=== PATIENT | male | born 1945 | race Caucasian/White ===

== ENCOUNTER 2016-09-22 03:08 | Observation (INO) | payer OTHER, MEDICARE ==
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
[2016-09-22 03:43] LABS: ABSOLUTE IMMATURE GRANULOCYTES 0.06 10^3/uL (0.00-0.10); ADD DIFF? NO; ADD MORPH? NO; ADD SCAN? NO; ATYPICAL LYMPHOCYTE FLAG 0 (0-99); FRAGMENT RBC FLAG 0 (0-99); HEMATOCRIT 37.8 % (40.0-51.0); HEMOGLOBIN 13.4 g/dL (13.7-17.5); LEFT SHIFT FLG 10 (0-99); LIPEMIA HEMOLYSIS FLAG 90 (0-99); MEAN CELL HEMOGLOBIN 32.8 pg (27.9-34.1); MEAN CELL HEMOGLOBIN CONCENTR. 35.4 g/dL (32.4-36.7); MEAN CELL VOLUME 92.4 fL (81.5-99.8); MEAN PLATELET VOLUME 11.6 fL (8.7-11.7); PLATELET CLUMPS FLAG 0 (0-99); PLATELET COUNT 183 10^3/uL (150-400); RED BLOOD CELL COUNT 4.09 10^6/uL (4.40-6.38); RED CELL DISTRIBUTION WIDTH 14.8 % (11.5-15.2)
--- NOTE | 2016-09-22 03:46 | CPEKG ---
Heart Rate: 85 RR Interval: 706 P-R Interval: 176 QRSD Interval: 94 QT Interval: 396 QTC Interval: 471 P [place]: 32 QRS [place]: -15 T Wave [place]: 34 EKG Severity - ABNORMAL ECG - EKG Impression: SINUS RHYTHM EKG Impression: VENTRICULAR BIGEMINY EKG Impression: BORDERLINE LEFT AXIS DEVIATION Electronically Signed By: Don Nicole 22-Sep-2016 07:04:11
[2016-09-22 03:49] LABS: ALANINE AMINOTRANSFERASE 33 IU/L (21-72); ALBUMIN 4.4 g/dL (3.5-5.0); ALKALINE PHOSPHATASE 50 IU/L (38-126); ANION GAP 11 mEq/L (8-16); ASPARTATE AMINOTRANSFERASE 26 IU/L (17-59); BILIRUBIN,TOTAL 1.3 mg/dL (0.1-1.4); BILIRUBIN-CONJUGATED 0.4 mg/dL (0.0-0.5); BILIRUBIN-UNCONJUGATED 0.9 mg/dL (0.0-1.1); CALCIUM 9.4 mg/dL (8.5-10.4); CARBON DIOXIDE 25 mEq/l (22-31); CHLORIDE 105 mEq/L (97-110); CREATININE 0.8 mg/dL (0.7-1.3); GLOMERULAR FILTRATION RATE > 60; GLUCOSE 89 mg/dL (70-100); POTASSIUM 3.5 mEq/L (3.5-5.2); SODIUM 141 mEq/L (134-144); TOTAL PROTEIN 7.1 g/dL (6.3-8.2)
[2016-09-22 04:17] LABS: COLOR YELLOW; LEUKOCYTE ESTERASE,URINE NEGATIVE (NEGATIVE); NITRITE,URINE NEGATIVE (NEGATIVE)
[2016-09-22] MEDS ORDERED: ACETAMINOPHEN 325 MG TAB PO PRN (07:43)
[2016-09-22] MEDS ORDERED: ONDANSETRON 4 MG/2 ML VIAL IVP PRN (07:43)
[2016-09-22] MEDS ORDERED: ONDANSETRON DISINTEGRATING 4 MG TAB PO PRN (07:43)
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
--- NOTE | 2016-09-22 10:15 | HOSPPROG ---
Hospitalist Progress Note Assessment/Plan: Hosp Med day service rounds The patient remains confused on my exam - he is very alert, active, eating, walking, and conversant. However in conversation he has long hesitation and loses track of the subject, or wanders to new topics even mid sentence. His memory is very poor for certain details. He certainly is not safe for driving. There remain no fevers or other changes in vitals, and he has no focal neuro changes, no other significant exam findings. MRI of brain to eval for etiology is pending. He is still not able to recall what antibiotic he was taking, but I agree if it was a quinolone that could be causing his symptoms. His dog is in the ER in a kennel, but may be moved later today to the [facility] residential. His daughter is to arrive here from [place] by flight late katarzyna. Objective: Vital Signs Temp Pulse Resp BP Pulse Ox 36.5 C 79 16 127/77 H 95 09/22/16 07:36 09/22/16 07:36 09/22/16 07:36 09/22/16 07:36 09/22/16 07:36 ICD10 Worksheet Patient Problems: Problems Problem Status Onset Confusion Acute
[2016-09-22] MEDS ORDERED: GADOBUTROL 10 ML VIAL IVP ONE (11:41)
[2016-09-22] MEDS: METOPROLOL TARTRATE 25 MG TAB PO SCH (20:41)
[2016-09-22] MEDS: POTASSIUM CL 20 MEQ TAB PO SCH (20:42)
[2016-09-22] MEDS ORDERED: FAMOTIDINE 20 MG TAB PO SCH (21:00)
[2016-09-22] MEDS ORDERED: CETIRIZINE 10 MG TAB PO SCH (21:00)
[2016-09-22] MEDS ORDERED: NON-FORMULARY NEW DRUG (Loratadine [Claritin] 10 MG) PO SCH (21:00)
[2016-09-22] MEDS ORDERED: ATORVASTATIN CALCIUM 20 MG TAB PO SCH (21:00)
[2016-09-22] MEDS ORDERED: NON-FORMULARY NEW DRUG (Ranitidine Hcl [Zantac] 150 MG) PO SCH (21:00)
[2016-09-22] MEDS ORDERED: NON-FORMULARY NEW DRUG (Simvastatin [Zocor] 40 MG) PO SCH (21:00)
[2016-09-22] MEDS ORDERED: ASPIRIN 81 MG CHEWABLE TAB PO SCH (21:00)
[2016-09-23 04:49] LABS: ANION GAP 12 mEq/L (8-16); CALCIUM 9.3 mg/dL (8.5-10.4); CARBON DIOXIDE 26 mEq/l (22-31); CHLORIDE 105 mEq/L (97-110); CREATININE 0.9 mg/dL (0.7-1.3); GLOMERULAR FILTRATION RATE > 60; GLUCOSE 84 mg/dL (70-100); POTASSIUM 3.7 mEq/L (3.5-5.2); SODIUM 143 mEq/L (134-144)
[2016-09-23 07:33] VITALS: RESP 16; TEMP 97.9; O2SAT 96
[2016-09-23] MEDS ORDERED: MULTIVITAMINS 1 EACH TAB PO SCH (09:00)
[2016-09-23] MEDS ORDERED: NON-FORMULARY NEW DRUG (Omeprazole [Prilosec 20 Mg] 20 MG) PO SCH (09:00)
[2016-09-23] MEDS ORDERED: HYDROCHLOROTHIAZIDE 12.5 MG CAP PO SCH (09:00)
[2016-09-23] MEDS ORDERED: ASCORBIC ACID 500 MG TAB PO SCH (09:00)
[2016-09-23] MEDS ORDERED: PANTOPRAZOLE SODIUM 40 MG TAB PO SCH (09:00)
[2016-09-23] MEDS ORDERED: NIACIN 500 MG TAB PO SCH (09:00)
[2016-09-23] MEDS: POTASSIUM CL 20 MEQ TAB PO SCH (09:12)
[2016-09-23] MEDS: METOPROLOL TARTRATE 25 MG TAB PO SCH (09:13)
[2016-09-23 09:14] VITALS: BP 112/60; PULSE 66
== END 2016-09-23 12:45 | disposition home or self-care (01) ==
LOC: F2W 06:33
PROVIDERS: ADMIT Internal Medicine; ATTEND Internal Medicine
DX: G31.9 Degenerative disease of nervous system, unspecified (principal); G93.89 Other specified disorders of brain; R41.0 Disorientation, unspecified; G93.40 Encephalopathy, unspecified; I10 Essential (primary) hypertension; N41.9 Inflammatory disease of prostate, unspecified; D64.9 Anemia, unspecified
CPT/HCPCS: 70450; 70553; 92523; 93005; 97161; 97165; 99285; A9585; G0378; G8978; G8979; G8980; G8987; G8988; G9168; G9169